=== PATIENT | male | born 1945 | race Caucasian/White ===

== ENCOUNTER → 2016-09-07 | Outpatient (CLI) | payer MEDICARE, BC ==
[~2016-09-07] MED LIST: ASPERDRINK81 MG PO; ASPIRIN81 M2 PO; BENADRYL25 M3 PO; CARVEDILOL6.25 MG PO; FUROSEMIDE40 MG PO; LISINOPRIL5 MG PO; METOPROLOL SUC100 MG PO; MULTI VITAMIN1 EACH PO; WARFARIN SODIU2.5 M1 PO; ZYLOPRIM100 MG PO
--- NOTE | ~2016-09-07 | US37 ---
[facility] A Service of [facility] & [facility] / [facility] RADIOLOGY TEXT RESULTS PATIENT: DOROTEO MUNOZ LOCATION: SN[facility] : 49 UNIT #: [id number] AGE: [address]: Barbara Smith MD SEX: M ORDER DR: [id number] [address] [address] [id number] O MR#: [id number] Acc #: [id number] NAME: DOROTEO MUNOZ : 1945 SEX: M STUDY DATE/TIME: 09/07/2016 10:12 UNIT: [facility] ROOM: STUDY DESCRIPTION: US Carotid W/Doppler Bilateral Attending Physician: Barbara Smith M.D. Referring Physician: Barbara Smith M.D. Ordering Physician: Barbara Smith M.D. Primary Care Physician: Barbara Smith M.D. MEDICAL IMAGING REPORT This report is preliminary unless electronic signature is present. EXAM Carotid duplex scan. DATE OF EXAMINATION 09/07/2016 HISTORY Dizziness. FINDINGS The right common carotid artery has no significant plaque. There is a small amount of heterogeneous dense plaque in the right carotid bulb which extends up into the proximal internal and external carotid arteries. Peak systolic velocity in the distal right internal carotid artery is 90 cm/sec. The ICA/CCA ratio on the right is 1.4. Peak systolic velocity in the right external carotid artery is 74 cm/sec. The right vertebral artery is patent with antegrade flow. The left common carotid artery has no significant plaque. There is a small amount of heterogeneous dense plaque in the left carotid bulb which extends up into the proximal internal and external carotid arteries. Peak systolic velocity in the distal mid-left internal carotid artery is 67 cm/sec. The ICA/CCA ratio on the left is 0.9. Peak systolic velocity in the left external carotid artery is 76 cm/sec. The left vertebral artery is patent with antegrade flow. IMPRESSION Small amount of plaque, but no significant stenosis (less than 50%) in the internal and external carotid arteries bilaterally. Patent vertebral arteries bilaterally with antegrade flow. STS. [facility] A Service of [facility] & [facility] / [facility] RADIOLOGY TEXT RESULTS PATIENT: ALEXANDERDOROTEO LOCATION: SNIV : 47 UNIT #: [id number] AGE: [address]: Barbara Smith MD SEX: M ORDER DR: Dictated by... Isai Banks M.D. THIS IS AN ELECTRONICALLY VERIFIED REPORT Isai Banks M.D. at 09/09/2016 7:42 AM MARCO/delta TD: 09/07/2016 16:29 JOB #: [id number] MEDICAL IMAGING REPORT Page 1 of 1
== END | disposition home or self-care (01) ==
LOC: SNIV 09:41
DX: R42 Dizziness and giddiness (principal); I65.23 Occlusion and stenosis of bilateral carotid arteries
CPT/HCPCS: 93880

== ENCOUNTER → 2016-11-10 | Outpatient (CLI) | payer MEDICARE, BC ==
--- NOTE | ~2016-11-10 | CT2 ---
[facility] A Service of [facility] & [facility] RADIOLOGY TEXT RESULTS PATIENT: DOROTEO MUNOZ LOCATION: [facility] : 47 UNIT #: [id number] AGE: [address]: Barbara Smith MD SEX: M ORDER DR: [id number] [address] [address] [id number] O MR#: [id number] Acc #: [id number] NAME: DOROTEO MUNOZ : 1945 SEX: M STUDY DATE/TIME: 11/10/2016 8:39 UNIT: [facility] ROOM: STUDY DESCRIPTION: CT Abd and Pelv W Cont Attending Physician: Barbara Smith M.D. Referring Physician: Barbara Smith M.D. Ordering Physician: Barbara Smith M.D. Primary Care Physician: Barbara Smith M.D. MEDICAL IMAGING REPORT This report is preliminary unless electronic signature is present. EXAM Abdomen and pelvis CT with contrast, 11/10/2016. INDICATIONS 71-year-old male with left lower quadrant pain since yesterday morning. Hypertension, blood thinners, cholecystectomy, pacemaker placement. TECHNIQUE Contrast-enhanced abdomen and pelvis CT was performed and compared with 05/27/2015. This CT exam was performed with one or more of the following radiation dose reduction techniques: automatic exposure control, adjustment of mA and/or kV according to patient size, and iterative reconstruction. FINDINGS CT ABDOMEN There is dependent atelectasis in the left lung base. Subpleural noncalcified nodule in the right lower lobe measures 5 mm, unchanged from the 2016 study. Recommend a followup chest CT in May 2017 to confirm 2 years of stability and benignity. Aorta demonstrates no aneurysm or dissection. Spleen and adrenal glands are unremarkable. The pancreas is normal. Gallbladder surgically absent. Liver demonstrates fatty infiltration. There are tiny low-attenuation lesions within the liver that are too small to characterize but are also unchanged from 2016 study and, therefore, most likely to be benign absent risk factors for malignancy or underlying hepatic dysfunction. Kidneys demonstrate no hydronephrosis or inflammatory change. There is a dominant exophytic cyst arising from the posterior mid pole right kidney measuring almost 6 1/2 cm. There is no adenopathy. CT PELVIS [facility]. [facility] A Service of [facility] / [facility] RADIOLOGY TEXT RESULTS PATIENT: DOROTEO MUNOZ LOCATION: [facility] : 47 UNIT #: [id number] AGE: [address]: Barbara Smith MD SEX: M ORDER DR: Bladder and prostate unremarkable. No drainable fluid collection in the pelvis. There is moderate acute diverticulitis of the distal descending and proximal sigmoid colon extending over a distance of at least 10 cm. There is a small amount of free fluid in the left and, to a lesser extent, right pericolic gutters; but no drainable fluid collection, bowel obstruction or free air present at this time. Appendix normal. Inguinal canals unremarkable. No suspicious bone lesion. Degenerative changes of the thoracolumbar spine. IMPRESSION 1. Abnormal examination. Results called to the ordering physician, Dr. Smith, at the time of this dictation. The patient has at least moderate to perhaps moderately severe acute diverticulitis at the junction of the distal descending and proximal sigmoid colon. There is a small amount of free fluid in the pericolic gutters; but, at this point, no drainable fluid collection, bowel obstruction or free air. 2. 5 mm noncalcified nodule in the right lower lobe unchanged. A followup CT in May of 2017 could be performed to document 2 years of stability. 3. Fatty infiltration of the liver with a tiny low-attenuation lesions in the liver they are too small to further characterize, but likely benign based upon stability since the prior study. 4. Right-sided renal cysts. 5. The appendix is normal. 6. Status post cholecystectomy. STAT * RESULT Dictated by... Heber Duenas M.D. THIS IS AN ELECTRONICALLY VERIFIED REPORT Heber Duenas M.D. at 11/11/2016 10:27 AM Margret TD: 11/11/2016 08:18 JOB #: [id number] MEDICAL IMAGING REPORT Page 1 of 1
[2016-11-10 07:40] LABS: POC - CREATININE 1.14 mg/dL (0.64-1.27); POC - GFR >60.0 mL/min (>60)
== END | disposition home or self-care (01) ==
LOC: SCT 08:01
PROVIDERS: Internal Medicine
DX: R10.32 Left lower quadrant pain (principal); R93.3 Abnormal findings on diagnostic imaging of other parts of digestive tract; K57.92 Diverticulitis of intestine, part unspecified, without perforation or abscess without bleeding; R91.1 Solitary pulmonary nodule; K76.0 Fatty (change of) liver, not elsewhere classified; Q61.02 Congenital multiple renal cysts; Z90.49 Acquired absence of other specified parts of digestive tract
CPT/HCPCS: 74177; 82565; Q9967